=== PATIENT | female | born 1950 | race Caucasian/White ===

== ENCOUNTER → 2016-12-24 | Outpatient (CLI) | payer MEDICARE ==
[2016-12-24 13:11] LABS: CALCIUM LEVEL 9.2 MG/DL (8.8-10.2)
== END ==
LOC: M WUC 08:55
PROVIDERS: ATTEND Physician Assistant Medical
DX: M81.0 Age-related osteoporosis without current pathological fracture (principal); E55.9 Vitamin D deficiency, unspecified

== ENCOUNTER → 2017-03-06 | Outpatient (CLI) | payer MEDICARE ==
--- NOTE | 2017-03-06 16:37 | REP ---
Chest x-ray: Two views: History: Bronchitis. Comparison study is from 08/20/2007. Findings: There is a moderate levoconvex lumbar rotoscoliotic curve. The lungs are well inflated and clear. The pleural angles are sharp. Heart size is normal. Pulmonary vasculature is not increased. The aorta is calcific. Impression: No active disease. Moderate levoconvex lumbar scoliosis. Signed by Dariusz Mcdonnell MD 03/06/2017 04:38 P
== END ==
LOC: M WUC 15:03
PROVIDERS: ATTEND Family Medicine
DX: J40 Bronchitis, not specified as acute or chronic (principal)

== ENCOUNTER → 2017-07-01 | Outpatient (CLI) | payer MEDICARE | LOC: M WUC 14:09 | DX: M81.0 Age-related osteoporosis without current pathological fracture (principal) | CPT/HCPCS: 82310 ==

== ENCOUNTER → 2017-12-31 | Outpatient (CLI) | payer MEDICARE ==
[2017-12-31 17:55] LABS: CALCIUM LEVEL 9.1 MG/DL (8.8-10.2)
[2018-01-01 10:59] LABS: TOTAL 25(OH) VITAMIN D 61.9 NG/ML (30.0-100.0)
== END ==
LOC: M WUC 09:22
DX: E55.9 Vitamin D deficiency, unspecified (principal)
CPT/HCPCS: 82310

== ENCOUNTER → 2018-02-27 | Outpatient (CLI) | payer MEDICARE ==
[2018-02-27 19:49] LABS: BLOOD UREA NITROGEN 8 MG/DL (7-18)
[2018-02-27 19:49] LABS: CREATININE FOR GFR 0.72 MG/DL (0.55-1.30); GLOMERULAR FILTRATION RATE > 60.0 (>45)
== END ==
LOC: M WUC 16:40
DX: M51.36 Other intervertebral disc degeneration, lumbar region (principal)
CPT/HCPCS: 82565

== ENCOUNTER → 2018-07-08 | Outpatient (CLI) | payer MEDICARE | LOC: M WUC 09:12 | PROVIDERS: ATTEND Internal Medicine Endocrinology, Diabetes & Metabolism | DX: M81.0 Age-related osteoporosis without current pathological fracture (principal) ==

== ENCOUNTER → 2018-09-04 | Outpatient (REF) | payer MEDICARE ==
[2018-09-04 18:42] LABS: APPEARANCE, URINE CLEAR (CLEAR); BACTERIA, URINE AUTO NEGATIVE (NEGATIVE); BILIRUBIN, URINE AUTO NEGATIVE (NEGATIVE); BLOOD, URINE BLOOD NEGATIVE (NEGATIVE); COLOR, URINE YELLOW (YELLOW); GLUCOSE, URINE (UA) AUTO NEGATIVE (NEGATIVE); KETONE, URINE AUTO NEGATIVE (NEGATIVE); LEUKOCYTE ESTERASE, URINE AUTO NEGATIVE (NEGATIVE); NITRITE, URINE AUTO NEGATIVE (NEGATIVE); PROTEIN, URINE AUTO NEGATIVE (NEGATIVE); RBC, URINE AUTO 0 /HPF (0-3); SPECIFIC GRAVITY URINE AUTO 1.006 (1.002-1.035); SQUAMOUS EPITHELIAL CELL UR AU 0 /HPF (0-6); UROBILINOGEN, URINE AUTO 0.2 mg/dL (0.0-2.0); WBC, URINE AUTO 0 /HPF (0-3)
== END ==
LOC: M LAB REF 16:33
PROVIDERS: ATTEND Physician Assistant Medical
DX: N39.0 Urinary tract infection, site not specified (principal)

== ENCOUNTER → 2018-12-30 | Outpatient (CLI) | payer MEDICARE ==
[2018-12-31 12:17] LABS: TOTAL 25(OH) VITAMIN D 60.4 NG/ML (30.0-100.0)
== END ==
LOC: M WUC 09:06
PROVIDERS: ATTEND Nurse Practitioner Family
DX: M81.0 Age-related osteoporosis without current pathological fracture (principal); E55.9 Vitamin D deficiency, unspecified

== ENCOUNTER → 2019-03-29 | Outpatient (CLI) | payer MEDICARE ==
[2019-03-29 17:36] LABS: BASO % 0.9 % (0.0-1.0); EOS # 0.1 10^3/uL (0.0-0.5); EOS % 1.8 % (0.0-3.0); HEMATOCRIT 38.6 % (36.0-47.0); HEMOGLOBIN 12.2 g/dl (12.0-15.5); LYMPH # 1.6 10^3/uL (1.5-5.0); MEAN CORPUSCULAR HEMOGLOBIN 28.4 pg (27.0-33.0); MEAN CORPUSCULAR HGB CONC 31.6 g/dl (32.0-36.5); MEAN CORPUSCULAR VOLUME 89.8 fl (80.0-96.0); MONO # 0.3 10^3/uL (0.0-0.8); MONO % 7.7 % (0.0-5.0); NEUTROPHILS # 2.3 10^3/uL (1.5-8.5); NEUTROPHILS % 52.4 % (36.0-66.0); PLATELET COUNT, AUTOMATED 304 10^3/uL (150-450); WHITE BLOOD COUNT 4.4 10^3/uL (4.0-10.0)
[2019-03-29 18:08] LABS: IMMUNOGLOBULIN A 83.1 MG/DL (70-400); IMMUNOGLOBULIN G 826 MG/DL (681-1648); RUBELLA IgG QUALITATIVE IMMUNE (IMMUNE)
[2019-03-29 19:35] LABS: IMMUNOGLOBULIN E < 3.6 IU/ML (<100)
[2019-04-04 00:07] LABS: ANTI TETANUS ANTIBODY 6.98 IU/mL (<0.10); PNEUMOCOCCAL AB TYPE 14 PRE >17.4 ug/mL (>1.3); PNEUMOCOCCAL AB TYPE 23 PRE 3.5 ug/mL (>1.3); PNEUMOCOCCAL AB TYPE 26 PRE 3.2 ug/mL (>1.3); PNEUMOCOCCAL AB TYPE 4 PRE 0.5 ug/mL (>1.3); PNEUMOCOCCAL AB TYPE 56 PRE >10.9 ug/mL (>1.3); PNEUMOCOCCAL AB TYPE 68 PRE 7.5 ug/mL (>1.3)
== END ==
LOC: M WUC 12:58
PROVIDERS: ATTEND Allergy & Immunology Allergy
DX: L50.1 Idiopathic urticaria (principal); D84.9 Immunodeficiency, unspecified

== ENCOUNTER → 2019-07-13 | Outpatient (CLI) | payer MEDICARE ==
[~2019-07-13] MED LIST: AZEL1SPR3; CYCL5TAB PO; HYDR12CA; LEVO88TA3; LORA-674; NAPR-837 PO; PANT40TA3
== END ==
LOC: M WUC 09:52
PROVIDERS: ATTEND Internal Medicine Endocrinology, Diabetes & Metabolism
DX: M81.0 Age-related osteoporosis without current pathological fracture (principal)

== ENCOUNTER → 2020-01-05 | Outpatient (CLI) | payer MEDICARE ==
[~2020-01-05] MED LIST changes: +PANT40TA29; -PANT40TA3
[2020-01-05 16:27] LABS: CALCIUM LEVEL 9.4 MG/DL (8.8-10.2)
[2020-01-06 12:34] LABS: TOTAL 25(OH) VITAMIN D 71.3 NG/ML (30.0-100.0)
== END ==
LOC: M WUC 13:41
PROVIDERS: ATTEND Nurse Practitioner Family
DX: M81.0 Age-related osteoporosis without current pathological fracture (principal); E55.9 Vitamin D deficiency, unspecified